=== PATIENT | female | born 1945 | race Caucasian/White ===

== ENCOUNTER 2017-10-19 18:09 | Emergency (ER) | payer MEDICARE, OTHER ==
[2017-10-19 18:41] VITALS: BP 135/88; PULSE 76; TEMP 98.4; BMI 31.8
[2017-10-19] MEDS ORDERED: ACETAMINOPHEN 325 MG TABLET (FP) PO ONE (19:19)
[2017-10-19] MEDS ORDERED: ACETAMINOPHEN 325 MG TABLET (FP) ONE (19:23)
--- NOTE | 2017-10-19 19:26 | PDOC ---
History of Present Illness - General Chief Complaint: Eye Problem Stated Complaint: EYE PROBLEM Time Seen by Provider: 10/19/17 18:44 History Source: Patient, Spouse ( translated per pt request) Exam Limitations: No Limitations - History of Present Illness Associated Symptoms: denies: chest pain, fever/chills Asa Contraindications(Core Measure): No: Plavix Past History - Travel Traveled outside of the country in the last 30 days: No Close contact w/someone who was outside of country & ill: No - Past Medical History Allergies/Adverse Reactions: Allergies Allergy/AdvReac Type Severity Reaction Status Date / Time No Known Allergies Allergy Verified 10/19/17 18:26 Home Medications: Ambulatory Orders Dextran 70/Hypromellose/Pf [Artificial Tears Drops] 1 each OP TID 7 Days #1 bottle 10/19/17 Dextran 70/Hypromellose/Pf [Artificial Tears Drops] 1 each OP TID 7 Days #1 bottle 10/19/17 COPD: No GI Disorders: Yes (choleycystectomy) - Surgical History Cholecystectomy: Yes - Immunization History Immunization Up to Date: Yes - Suicide/Smoking/Psychosocial Hx Smoking Status: No Smoking History: Never smoked Have you smoked in the past 12 months: No Number of Cigarettes Smoked Daily: 0 Information on smoking cessation initiated: No Hx Alcohol Use: No Drug/Substance Use Hx: No Substance Use Type: None Review of Systems - Review of Systems Is the patient limited [place]er proficient: No Constitutional: No: Chills, Fever HEENTM: Yes: Other (R eye redness). No: Eye Pain, Blurred Vision, Tearing, Recent change in vision, Double Vision, Nose Congestion Neurological: Yes: Headache. No: Numbness, Paresthesia, Tingling, Dizziness *Physical Exam - Vital Signs Last Vital Signs Temp Pulse Resp BP Pulse Ox 98.4 F 76 18 135/88 96 10/19/17 18:26 10/19/17 18:26 10/19/17 18:26 10/19/17 18:26 10/19/17 18:26 - Physical Exam General Appearance: Yes: Nourished HEENT: positive: Other (R eye: subconjucntiva hemorrage). negative: Photophobia Respiratory/Chest: positive: Lungs Clear, Normal Breath Sounds Cardiovascular: positive: Regular Rate, S1, S2 Neurologic: positive: financial advisor trainee II-XII NML intact, Fully Oriented, Alert Medical Decision Making - Medical Decision Making 10/19/17 19:23 Patient is a 71 is old female presents with acute onset of bright red eye redness since Friday. Patient reports she went eye doctor and was dilated when she presented home she woke up the next day with red. Right eyes denies any trauma, eye pain,, FB sensation, photophobia. + intermittent headache but no cough or heavy lifting exam consistent with several conjunctiva hemorrhage.visual acuity with correction 20/40 in R eye and 20/50 in left eye no visual disturbance reassured, artificial tears f/u with opthalmology this week 10/19/17 19:29 10/19/17 19:44 *DC/Admit/Observation/Transfer Diagnosis at time of Disposition: Subconjunctival hemorrhage of right eye - Discharge Dispostion Disposition: HOME Condition at time of disposition: Stable Admit: No - Prescriptions Prescriptions: Dextran 70/Hypromellose/Pf [Artificial Tears Drops] 1 each OP TID 7 Days #1 bottle Dextran 70/Hypromellose/Pf [Artificial Tears Drops] 1 each OP TID 7 Days #1 bottle - Referrals Referrals: Harry Jang MD [Primary Care Provider] - - Patient Instructions Printed Discharge Instructions: DI for Subconjunctival Hemorrhage Additional Instructions: He is artificial tears to the right eye follow-up with ophthalmology as discussed tomorrow. - Post Discharge Activity
== END 2017-10-19 19:34 | disposition home or self-care (01) ==
LOC: JERFT 18:09
PROC: 4A07X0Z Measurement of Visual Acuity, External Approach (ICD-10-PCS; principal; 2017-10-19)
DX: H11.31 Conjunctival hemorrhage, right eye (principal); Z90.49 Acquired absence of other specified parts of digestive tract
CPT/HCPCS: 99173; 99281-25